=== PATIENT | female | born 1980 | race Caucasian/White ===

== ENCOUNTER 2022-03-08 23:15 | Emergency (ER) | payer OTHER ==
[~2022-03-08] VITALS: Ht 182.9 cm; Wt 125.7 kg
[~2022-03-08 23:15] MED LIST: KEFLEX500 MG PO; PROZAC20 MG PO
--- OUTSIDE RECORDS SUMMARY | 2022-03-08 23:18 | XMS ---
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 Zachary has no Care Guidelines for this patient. [place] [facility]12 MO.) [facility] NOTE: Visits indicate total known visits. ED/UCC VISIT TRACKING (12 MO.) 03/08/2022 23:16 [facility] [place] TYPE: Emergency COMPLAINT: - POSS UTI 11/12/2021 00:13 [facility] [place] TYPE: Emergency DIAGNOSES: - Urinary Pain - Urinary tract infection, site not specified INPATIENT VISIT TRACKING (12 MO.) No inpatient visits to display in this time frame [email or web address]
[2022-03-08] MEDS ORDERED: VENLAFAXINE HC150 MG PO (23:42)
[2022-03-08] MEDS ORDERED: SUBOXONE 8 MG-1 EAC1 SL (23:42)
[2022-03-08] MEDS ORDERED: PYRIDIUM200 MG PO (23:54)
[2022-03-08] MEDS ORDERED: CEPHALEXIN500 M1 PO (23:54)
== END 2022-03-09 00:07 | disposition home or self-care (01) ==
LOC: ED 23:15
DX: N39.0 Urinary tract infection, site not specified (principal); F17.200 Nicotine dependence, unspecified, uncomplicated; Z79.899 Other long term (current) drug therapy
CPT/HCPCS: 81001; 84703; A9270